=== PATIENT | female | born 1975 | race Caucasian/White ===

== ENCOUNTER 2019-02-11 14:30 | Emergency (ER) | payer BC, SELFPAY ==
[2019-02-11 14:45] VITALS: BP 144/96; PULSE 99; RESP 16; TEMP 36.7; O2SAT 98; BMI 68.1
--- NOTE | 2019-02-11 14:48 | ED.FEMALEGU ---
HPI - Female Genitourinary <Lorena Jones PA-C - Last Filed: 02/11/19 21:31> General Chief complaint: Abdominal Pain Stated complaint: THINKS KIDNEY STONES Time Seen by Provider: 02/11/19 14:34 Source: patient Mode of arrival: ambulatory Limitations: no limitations History of Present Illness HPI Narrative: This 43-year-old female comes to ED secondary to left sided flank pain that started yesterday. She is concerned about a recurrent kidney stone. she states that she had 1 few years ago and this feels similar. She states that pain waxes and wanes in severity, thinks maybe it is worse if she stays in 1 position for a long time. She states that the severity of pain is not worse today than it was yesterday, but it is more constant now, so that is what brought her in. She describes it as similar to ?back labor?. She states that with her last episode, she had gross hematuria but has not noted any this time. She states she feels like pain is in the flank and when she urinates or strange she can also feel it moving through to her suprapubic area, but she denies jeff dysuria. She denies chills or sweats today, thinks she could have had a fever last night but no temp taken. She states that she does have nausea but no vomiting. She states that she had 1 episode of loose stools this morning, otherwise no bowel changes. She has not had frequency or urgency. She has eaten today and been drinking small amounts of fluids. She states that she had an upper respiratory infection last month but completely resolved, no recent illness or upper respiratory symptoms, denies chest pain or dyspnea. She has not had any new rashes. Denies any other complaints on systems review Related Data Home Medications Medication Instructions Recorded Confirmed albuterol sulfate HFA 90 2 puff INHALATION Q6H PRN 10/29/18 02/11/19 mcg/actuation aerosol inhaler estradiol 1.25 gram/actuation 1.25 gram TRANSDERMAL DAILY 10/29/18 02/11/19 (0.06%) transdermal gel pump mometasone-formoterol HFA 200 2 inhalation INHALATION BID 10/29/18 02/11/19 mcg-5 mcg/actuation aerosol inhaler benzonatate 200 mg PO TID PRN 02/11/19 02/11/19 fluconazole See Rx Instructions .ROUTE .COMPLEX 02/11/19 Previous Rx's Medication Instructions Recorded ondansetron 4 mg PO Q8H PRN #7 tab 02/11/19 oxycodone-acetaminophen [Percocet] 1 tab PO Q4H PRN #7 tab 02/11/19 Allergies Allergy/AdvReac Type Severity Reaction Status Date / Time No Known Drug Allergies Allergy Unverified 10/29/18 12:57 Review of Systems <Lorena Jones PA-C - Last Filed: 02/11/19 21:31> Review of Systems ROS Unobtainable: All systems reviewed & are unremarkable except as noted in HPI and below PFSH <Lorena Jones PA-C - Last Filed: 02/11/19 21:31> Medical History (Updated 02/11/19 @ 17:07 by Lorena Jones PA-C) Asthma (Chronic) Kidney stone (Chronic) Surgical History (Updated 02/11/19 @ 15:13 by Lorena Jones PA-C) Status post (Resolved) Status post hysterectomy with oophorectomy (Resolved) Social History Smoking Status: Current every day smoker Social History Smoking Status: Current every day smoker Exam <Lorena Jones PA-C - Last Filed: 02/11/19 21:31> Narrative Exam Narrative: GENERAL APPEARANCE: Patient sitting comfortably, in no distress. LUNGS: Clear to auscultation bilaterally. HEART: Rate and rhythm regular without murmur, normal S1 and S2, no S3 or S4. ABDOMEN: Soft, ND, +BS x 4 quadrants, no CVAT. mild left flank and left lower quadrant/suprapubic tenderness without guarding or rebound. No tenderness elsewhere EXTREMITIES: No edema DERMATOLOGIC: No exanthem Initial Vital Signs Initial Vital Signs: Vital Signs Temperature 98.1 F 02/11/19 14:45 Pulse Rate 99 H 02/11/19 14:45 Respiratory Rate 16 02/11/19 14:45 Blood Pressure 144/96 H 02/11/19 14:45 Pulse Oximetry 98 02/11/19 14:45 <Kassie Ceballos DO - Last Filed: 02/12/19 14:56> Initial Vital Signs Initial Vital Signs: Vital Signs Temperature 98.1 F 02/11/19 14:45 Pulse Rate 99 H 02/11/19 14:45 Respiratory Rate 16 02/11/19 14:45 Blood Pressure 144/96 H 02/11/19 14:45 Pulse Oximetry 98 02/11/19 14:45 Course <Lorena Jones PA-C - Last Filed: 02/11/19 21:31> Additional Information: Reviewed findings with patient, no clear source for her pain or apparent acute surgical issue or need for admission. It is possible that she passed a kidney stone. She is feeling better at the time of discharge, still has some moderate pain. advised of the importance of close follow-up with PCP and need for serial exams, and we have scheduled her an appointment for tomorrow morning. She agreed to return here if any acutely worsening symptoms new symptoms such as fever or vomiting. Orders Ordered: Discontinued Medications Sodium Chloride (Normal Saline 0.9%) 1,000 mls @ 1,000 mls/hr IV BOLUS ONE Stop: 02/11/19 16:03 Last Infusion: 02/11/19 17:23 Dose: 0 mls/hr Admin: 02/11/19 15:17 Dose: 1,000 mls/hr Ketorolac Tromethamine (Toradol) 30 mg IV NOW ONE Stop: 02/11/19 15:05 Last Admin: 02/11/19 15:17 Dose: 30 mg Ondansetron HCl (Zofran) 4 mg IV NOW ONE Stop: 02/11/19 15:05 Last Admin: 02/11/19 15:17 Dose: 4 mg Oxycodone/Acetaminophen (Percocet 5/325) 1 tab PO NOW ONE Stop: 02/11/19 15:50 Last Admin: 02/11/19 16:09 Dose: 1 tab Vital Signs - 8 hr 02/11/19 14:45 02/11/19 17:22 Temperature 98.1 F Pulse Rate 99 H 85 Respiratory Rate 16 14 Blood Pressure 144/96 H 131/92 H Pulse Oximetry 98 97 <Kassie Ceballos DO - Last Filed: 02/12/19 14:56> Orders Ordered: Discontinued Medications Sodium Chloride (Normal Saline 0.9%) 1,000 mls @ 1,000 mls/hr IV BOLUS ONE Stop: 02/11/19 16:03 Last Infusion: 02/11/19 17:23 Dose: 0 mls/hr Admin: 02/11/19 15:17 Dose: 1,000 mls/hr Ketorolac Tromethamine (Toradol) 30 mg IV NOW ONE Stop: 02/11/19 15:05 Last Admin: 02/11/19 15:17 Dose: 30 mg Ondansetron HCl (Zofran) 4 mg IV NOW ONE Stop: 02/11/19 15:05 Last Admin: 02/11/19 15:17 Dose: 4 mg Oxycodone/Acetaminophen (Percocet 5/325) 1 tab PO NOW ONE Stop: 02/11/19 15:50 Last Admin: 02/11/19 16:09 Dose: 1 tab Vital Signs - 8 hr 02/11/19 14:45 02/11/19 17:22 Temperature 98.1 F Pulse Rate 99 H 85 Respiratory Rate 16 14 Blood Pressure 144/96 H 131/92 H Pulse Oximetry 98 97 MDM - Female Genitourinary <Lorena Jones PA-C - Last Filed: 02/11/19 21:31> Lab Data Attestation: I reviewed the patient's lab results. Result diagrams: 02/11/19 15:10 02/11/19 15:10 Lab Results 02/11/19 02/11/19 02/11/19 Range/Units 14:50 15:10 15:10 WBC 7.0 (4.5-11.0) X10^3/uL RBC 4.61 (4.0-5.2) X10^6/uL Hgb 14.1 (12.0-16.0) g/dL Hct 42.2 (36-46) % MCV 91.6 (80-100) fL MCH 30.7 (26-34) PG MCHC 33.5 (30-36) % RDW 14.6 (11.6-14.8) % Plt Count 227 (150-400) X10^3/uL Neut % (Auto) 50.8 (50-75) % Lymph % (Auto) 35.7 (25-40) % Ellis % (Auto) 6.6 (3-14) % Eos % (Auto) 5.8 H (2-4) % Baso % (Auto) 1.1 (0-2) % Neut # (Auto) 3500 (5460-3629) /uL Lymph # (Auto) 2500 (7614-3477) /uL Ellis # (Auto) 500 (0-900) /uL Eos # (Auto) 400 (0-450) /uL Baso # (Auto) 100 (0-100) /uL Sodium 139 (137-145) mmol/L Potassium 4.0 (3.4-5.1) mmol/L Chloride 101 (98-107) mmol/L Carbon Dioxide 29 (22-32) mmol/L BUN 27 H (7-17) mg/dL Creatinine 1.00 (0.52-1.04) mg/dL Estimated GFR 60.0 (>60) mL/min BUN/Creatinine Ratio 27.0 H (6-22) Glucose 105 H (70-100) mg/dL Calcium 9.6 (8.4-10.2) mg/dL Total Bilirubin 0.3 (0.2-1.3) mg/dL AST 28 (14-36) IU/L ALT 39 (9-52) IU/L Alkaline Phosphatase 70 (38-126) U/L Total Protein 7.0 (6.3-8.2) g/dL Albumin 4.3 (3.5-5.0) g/dL Globulin 2.7 (1.7-4.1) g/dL Albumin/Globulin Ratio 1.6 (1.0-2.8) Lipase 142 (23-300) U/L Urine RBC None seen (0-5/HPF) Urine WBC 1-5/hpf (0-5/HPF) Ur Squamous Epith Cells 5-10 /hpf H (0-5/HPF) Calcium Oxalate Crystal Few H Urine Bacteria None seen (None) Ur Culture Indicated? Cult not indicated Point of Care Testing Test Results Negative Urine Dip Bedside Urine Glucose Negative Bedside Urine Bilirubin - Negative Bedside Urine Ketone +++ 80 Urine Specific T[place]en 1.030 Bedside Urine Occult Blood +/- Bedside Urine pH 6.0 Bedside Urine Protein +/- 15 Bedside Urine Urobilinogen +/- 1mg Bedside Urine Nitrite - Negative Bedside Urine Leukocytes - Negative Esterase Imaging Data CT scan - abdomen: Radiologist's impression: [facility] [address] [place] [address] CT Scan Report Signed Patient: Liliana Hamm CMR#: [id number] : 1975Acct:[id number] Age/Sex: 43 / FDate of Service: 02/11/19 Loc: ED Accession Number: [id number] Procedure: CT kidney ureter bladder (KUB) Ordering Provider: Lorena Jones P.A-C PROCEDURE: CT KIDNEY URETER BLADDER (KUB) INDICATIONS: L. flank pain, ? stone TECHNIQUE: Noncontrast 5 mm thick sections acquired from the diaphragms to the symphysis. 5 mm thick coronal and sagittal reformats were then performed. For radiation dose reduction, the following was used: automated exposure control, adjustment of mA and/or kV according to patient size. COMPARISON: None. FINDINGS: Image quality: Excellent. Lung bases: Lung bases are clear. Heart size is normal. Urinary system: Both kidneys are normal in size. No kidney stones. No hydronephrosis or perinephric fat stranding. Both ureters appear non-dilated throughout their expected courses. Bladder wall thickness is normal; no calcified bladder stones. Other solid organs: Liver is normal in size. Gallbladder is contracted, but within normal limits. Pancreas is normal in contours. Spleen is normal in size. No adrenal nodules. Peritoneum and bowel: Unenhanced bowel loops demonstrate normal wall thickness and caliber. No free fluid or air. The appendix is normal. Nodes and vessels: No retroperitoneal or mesenteric adenopathy by size criteria. Aorta and inferior vena cava are normal in caliber. Abdominal wall: No ventral hernias. Pelvis: No free pelvic fluid. No inguinal hernias or adenopathy. Small calcifications in the uterus possibly related to uterine fibroids. Bones: No suspicious bony lesions. No vertebral body compression fractures. IMPRESSION: 1. No renal stone or hydronephrosis. 2. No dilated loops of bowel. 3. No free fluid or free air. 4. The appendix is normal. Dictated by: Sherrie Plaza MD, PhD on 02/11/2019 at 16:12 Approved by: Sherrie Plaza MD, PhD on 02/11/2019 at 16:16 <Kassie Ceballos DO - Last Filed: 02/12/19 14:56> Lab Data Lab Results 02/11/19 02/11/19 02/11/19 Range/Units 14:50 15:10 15:10 WBC 7.0 (4.5-11.0) X10^3/uL RBC 4.61 (4.0-5.2) X10^6/uL Hgb 14.1 (12.0-16.0) g/dL Hct 42.2 (36-46) % MCV 91.6 (80-100) fL MCH 30.7 (26-34) PG MCHC 33.5 (30-36) % RDW 14.6 (11.6-14.8) % Plt Count 227 (150-400) X10^3/uL Neut % (Auto) 50.8 (50-75) % Lymph % (Auto) 35.7 (25-40) % Ellis % (Auto) 6.6 (3-14) % Eos % (Auto) 5.8 H (2-4) % Baso % (Auto) 1.1 (0-2) % Neut # (Auto) 3500 (4411-7687) /uL Lymph # (Auto) 2500 (1390-7820) /uL Ellis # (Auto) 500 (0-900) /uL Eos # (Auto) 400 (0-450) /uL Baso # (Auto) 100 (0-100) /uL Sodium 139 (137-145) mmol/L Potassium 4.0 (3.4-5.1) mmol/L Chloride 101 (98-107) mmol/L Carbon Dioxide 29 (22-32) mmol/L BUN 27 H (7-17) mg/dL Creatinine 1.00 (0.52-1.04) mg/dL Estimated GFR 60.0 (>60) mL/min BUN/Creatinine Ratio 27.0 H (6-22) Glucose 105 H (70-100) mg/dL Calcium 9.6 (8.4-10.2) mg/dL Total Bilirubin 0.3 (0.2-1.3) mg/dL AST 28 (14-36) IU/L ALT 39 (9-52) IU/L Alkaline Phosphatase 70 (38-126) U/L Total Protein 7.0 (6.3-8.2) g/dL Albumin 4.3 (3.5-5.0) g/dL Globulin 2.7 (1.7-4.1) g/dL Albumin/Globulin Ratio 1.6 (1.0-2.8) Lipase 142 (23-300) U/L Urine RBC None seen (0-5/HPF) Urine WBC 1-5/hpf (0-5/HPF) Ur Squamous Epith Cells 5-10 /hpf H (0-5/HPF) Calcium Oxalate Crystal Few H Urine Bacteria None seen (None) Ur Culture Indicated? Cult not indicated Point of Care Testing Test Results Negative Urine Dip Bedside Urine Glucose Negative Bedside Urine Bilirubin - Negative Bedside Urine Ketone +++ 80 Urine Specific [place] 1.030 Bedside Urine Occult Blood +/- Bedside Urine pH 6.0 Bedside Urine Protein +/- 15 Bedside Urine Urobilinogen +/- 1mg Bedside Urine Nitrite - Negative Bedside Urine Leukocytes - Negative Esterase Discharge Plan Departure Patient Disposition: Home Clinical Impression: Acute left flank pain Discharge Date/Time: 02/11/19 17:23 Interventions: ED Discharge Assessment Last Done: 02/11/19 17:22 Instructions: DI for Abdominal Pain-Adult, DI for Flank Pain Activity Restrictions/Additional Instructions: The source of your pain is not exactly clear today. You do not have any abnormalities on your lab work or scan to explain the pain. It is possible that you passed a kidney stone, or it is possible that this pain is in your musculoskeletal system. It does not appear that there is any acute surgical issue or need for you to be admitted to the hospital today, however as we talked about, you should return to the ED if you have any acutely worsening symptoms or changes such as new fever or vomiting. otherwise, we have scheduled you for a follow-up with nurse practitioner alphonse tomorrow at 11:00 a.m. please take your [id number] ibuprofen 800 mg every 8 hours or Aleve 2 tablets every 12 hours to help with pain, along with the Percocet I prescribed for you this evening. Remember not to drive as that can make you sleepy. I have also prescribed some antinausea medicine for you to take as needed. Prescriptions: New oxycodone-acetaminophen [Percocet] 5-325 mg tablet 1 tab PO Q4H PRN (Reason: acute flank pain) Qty: 7 RF: 0 ondansetron 4 mg tablet,disintegrating 4 mg PO Q8H PRN (Reason: nausea and vomiting) Qty: 7 RF: 0 No Action albuterol sulfate [Ventolin HFA] 90 mcg/actuation HFA aerosol inhaler 2 puff INHALATION Q6H PRN (Reason: Wheezing) RF: 0 estradiol [EstroGel] 1.25 gram/actuation gel in metered-dose pump 1.25 gram Transdermal DAILY RF: 0 mometasone-formoterol [Dulera] 200-5 mcg/actuation HFA aerosol inhaler 2 inhalation INHALATION BID RF: 0 fluconazole 150 mg tablet See Rx Instructions .ROUTE .COMPLEX RF: 0 benzonatate 200 mg capsule 200 mg PO TID PRN (Reason: Cough) RF: 0 Referrals: Mandy Lawrence ARNP [Non-Staff] - <Kassie Ceballos DO - Last Filed: 02/12/19 14:56> Cosign ED Attending Lalita Attestation: I was immediately available in the department for consultation. Documentation has been reviewed. I agree with assessment and plan.
--- NOTE | 2019-02-11 15:04 | DI.CT.S_ITS ---
PROCEDURE: CT KIDNEY URETER BLADDER (KUB) INDICATIONS: L. flank pain, ? stone TECHNIQUE: Noncontrast 5 mm thick sections acquired from the diaphragms to the symphysis. 5 mm thick coronal and sagittal reformats were then performed. For radiation dose reduction, the following was used: automated exposure control, adjustment of mA and/or kV according to patient size. COMPARISON: None. FINDINGS: Image quality: Excellent. Lung bases: Lung bases are clear. Heart size is normal. Urinary system: Both kidneys are normal in size. No kidney stones. No hydronephrosis or perinephric fat stranding. Both ureters appear non-dilated throughout their expected courses. Bladder wall thickness is normal; no calcified bladder stones. Other solid organs: Liver is normal in size. Gallbladder is contracted, but within normal limits. Pancreas is normal in contours. Spleen is normal in size. No adrenal nodules. Peritoneum and bowel: Unenhanced bowel loops demonstrate normal wall thickness and caliber. No free fluid or air. The appendix is normal. Nodes and vessels: No retroperitoneal or mesenteric adenopathy by size criteria. Aorta and inferior vena cava are normal in caliber. Abdominal wall: No ventral hernias. Pelvis: No free pelvic fluid. No inguinal hernias or adenopathy. Small calcifications in the uterus possibly related to uterine fibroids. Bones: No suspicious bony lesions. No vertebral body compression fractures. IMPRESSION: 1. No renal stone or hydronephrosis. 2. No dilated loops of bowel. 3. No free fluid or free air. 4. The appendix is normal. Dictated by: Sherrie Plaza MD, PhD on 02/11/2019 at 16:12 Approved by: Sherrie Plaza MD, PhD on 02/11/2019 at 16:16
[2019-02-11] MEDS: ONDANSETRON 4 MG/2 ML INJ IV (15:17)
[2019-02-11] MEDS: KETOROLAC 60 MG/2 ML VIAL 30 MG IV (15:17)
[2019-02-11] MEDS: SODIUM CHLORIDE 0.9% 1,000 ML 1000 ML IV (15:17)
[2019-02-11 15:21] LABS: Add Manual Diff / Slide Review NO; Basophils Absolute Auto 100 /uL (0-100); Basophils Percent Auto 1.1 % (0-2); Eosinophils Absolute Auto 400 /uL (0-450); Eosinophils Percent Auto 5.8 % (2-4); Hematocrit 42.2 % (36-46); Hemoglobin 14.1 g/dL (12.0-16.0); Lymphocytes Absolute Auto 2500 /uL (1100-4500); Lymphocytes Percent Auto 35.7 % (25-40); Mean Corpuscular HGB Conc 33.5 % (30-36); Mean Corpuscular Hemoglobin 30.7 PG (26-34); Mean Corpuscular Volume 91.6 fL (80-100); Monocytes Absolute Auto 500 /uL (0-900); Monocytes Percent Auto 6.6 % (3-14); Neutrophils Absolute Auto 3500 /uL (1500-7000); Neutrophils Percent Auto 50.8 % (50-75); Platelet Count 227 X10^3/uL (150-400); Red Blood Cell Count 4.61 X10^6/uL (4.0-5.2); Red Cell Distribution Width 14.6 % (11.6-14.8)
[2019-02-11 15:30] LABS: Alanine Aminotransferase 39 IU/L (9-52); Albumin 4.3 g/dL (3.5-5.0); Albumin Globulin Ratio 1.6 (1.0-2.8); Alkaline Phosphatase 70 U/L (38-126); Aspartate Aminotransferase 28 IU/L (14-36); Bilirubin Total 0.3 mg/dL (0.2-1.3); Blood Urea Nitrogen 27 mg/dL (7-17); Calcium 9.6 mg/dL (8.4-10.2); Carbon Dioxide 29 mmol/L (22-32); Chloride 101 mmol/L (98-107); Globulin 2.7 g/dL (1.7-4.1); Glucose 105 mg/dL (70-100); HEMOLYSIS < 15 (0-50); Lipase 142 U/L (23-300); Sodium 139 mmol/L (137-145)
[2019-02-11 15:42] LABS: Bacteria Urine None Seen; RBC Urine None Seen (0-5/HPF)
[2019-02-11 15:48] LABS: Squamous Epithelial Cell Urine 5-10 /HPF (0-5/HPF); WBC Urine 1-5/HPF (0-5/HPF)
[2019-02-11 15:49] LABS: Calcium Oxalate Crystals Urine Few; Culture Indicated Urine Cult Not Indicated
[2019-02-11] MEDS: OXYCODONE/ACETAMINOPHEN 5/325 TABLET 1 TAB PO (16:09)
[2019-02-11 17:22] VITALS: BP 131/92; PULSE 85; RESP 14; O2SAT 97
== END 2019-02-11 17:23 | disposition home or self-care (01) ==
PROVIDERS: Emergency Provider Internal Medicine
DX: R10.9 Unspecified abdominal pain (principal); R11.0 Nausea
CPT/HCPCS: 36591; 74176; 80053; 81003; 81015; 81025; 83690; 85025; 96361; 96374; 96375; 99283; 99284; J1885; J2405